=== PATIENT | male | born 1990 | race Caucasian/White ===

== ENCOUNTER 2018-10-09 15:40 | Emergency (ER) | payer OTHER ==
[~2018-10-09] VITALS: Ht 182.9 cm; Wt 74.8 kg
[2018-10-09] MEDS ORDERED: NKM (15:52)
[2018-10-09] MEDS ORDERED: ACETAMINOPHEN80 MG ORAL (15:52)
[2018-10-09] MEDS ORDERED: MELATONIN3 MG ORAL (15:52)
[2018-10-09 16:09] VITALS: BP 134/78
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
[2018-10-09] MEDS ORDERED: REGLAN10 MG ORAL (17:06)
[2018-10-09] MEDS ORDERED: EXCEDRIN MIGRA1 EACH PO (17:06)
[2018-10-09] MEDS ORDERED: Excedrin Migraine tab ORAL ONE (17:15)
[2018-10-09 17:18] VITALS: BP 128/74
== END 2018-10-09 17:20 | disposition home or self-care (01) ==
LOC: EMR 16:05
DX: S06.0X0A Concussion without loss of consciousness, initial encounter (principal); S02.2XXA Fracture of nasal bones, initial encounter for closed fracture; W51.XXXA Accidental striking against or bumped into by another person, initial encounter; Y92.89 Other specified places as the place of occurrence of the external cause
CPT/HCPCS: 70450; 70486; 99284